=== PATIENT | female | born 1960 | race Caucasian/White ===

== ENCOUNTER → 2018-11-21 | Outpatient (CLI) | payer OTHER ==
--- NOTE | 2018-11-21 18:24 | Diagnostic Imaging Report ---
INDICATION: Chronic low back pain and history of scoliosis. Three views were obtained. FINDINGS: There is 63 degrees of right convexity scoliosis centered at the thoracolumbar junction. There is multilevel degenerative disc disease. There is no spondylolysis. No fractures are identified. IMPRESSION: Diffuse lumbar spondylosis and degenerative disc disease with marked right convexity scoliosis. Recommend clinical correlation and, if warranted, followup with MRI. Dictated by: Dictated on workstation # [id number]
== END ==
LOC: RAD 10:21
PROVIDERS: ATTEND Surgery
DX: Z02.71 Encounter for disability determination (principal); M47.816 Spondylosis without myelopathy or radiculopathy, lumbar region; M51.36 Other intervertebral disc degeneration, lumbar region; M41.83 Other forms of scoliosis, cervicothoracic region
CPT/HCPCS: 72100